=== PATIENT | female | born 1985 ===

== ENCOUNTER 2016-08-09 21:13 | Emergency (ER) | payer SELFPAY ==
[2016-08-09 22:00] VITALS: BP 109/68; PULSE 68; RESP 20; TEMP 98.2; O2SAT 98
[2016-08-09] MEDS ORDERED: Atrop/Hyos/Scop/PhenoB Elixir PO ONE (23:47)
[2016-08-09] MEDS ORDERED: Alum-Mag Hydrox-Simethicone Susp (30 mL) PO ONE (23:47)
[2016-08-10] MEDS ORDERED: Alum-Mag Hydrox-Simethicone Susp (30 mL) ONE (00:27)
--- NOTE | 2016-08-10 00:50 | ED PDOC ---
HPI: Abdomen Time Seen by Provider: 08/10/16 00:43 Chief Complaint (Nursing): Abdominal Pain Chief Complaint (Provider): epigastric pain History Per: Patient Additional Complaint(s): pt w/ hx gastritis c/o upper abd pain starting this afternoon after lunch. denies exertional sx, radiation to back or shoulders. c/o associated nausea. no vomitting, diarrhea, cp, sob, palp, urinary c/o. pt is being referred to GI for same but has not yet undergone endoscopy. pt is not currently on any medications for gastritis or GERD. Past Medical History Reviewed: Historical Data, Nursing Documentation, Vital Signs Vital Signs: Last Vital Signs Temp 98.2 F 08/09/16 21:57 Pulse 68 08/09/16 21:57 Resp 20 08/09/16 21:57 BP 109/68 08/09/16 21:57 Pulse Ox 98 08/09/16 21:57 - Medical History PMH: Gastritis - Surgical History Surgical History: (x2) - Family History Family History: States: No Known Family Hx - Social History Current smoker - smoking cessation education provided: No Alcohol: None - Home Medications Home Medications: Ambulatory Orders Medication Instructions Recorded Famotidine [Pepcid] 20 mg PO BID #20 tab 05/21/15 Famotidine [Pepcid] 40 mg PO DAILY #30 tab 11/13/15 Omeprazole Magnesium [Prilosec Otc] 20 mg PO DAILY #20 tablet. 08/10/16 - Allergies Allergies/Adverse Reactions: Allergies Allergy/AdvReac Type Severity Reaction Status Date / Time No Known Allergies Allergy Verified 05/21/15 17:15 Review of Systems ROS Statement: Except As Marked, All Systems Reviewed And Found Negative Gastrointestinal: Positive for: Nausea, Abdominal Pain Physical Exam - Reviewed Nursing Documentation Reviewed: Yes Vital Signs Reviewed: Yes - Physical Exam Appears: Positive for: Non-toxic, Uncomfortable Skin: Positive for: Normal Color, Warm, DRY Neck: Positive for: Normal, Painless ROM Cardiovascular/Chest: Positive for: Regular Rate, Rhythm Respiratory: Positive for: CNT, Normal Breath Sounds Gastrointestinal/Abdominal: Positive for: Normal Exam, Bowel Sounds, Soft, Other (neg muniz). Negative for: Tenderness Neurologic/Psych: Positive for: Alert, Oriented - ECG O2 Sat by Pulse Oximetry: 98 Medical Decision Making Medical Decision Making: sx relieved with GI cocktail. asking for d/c. will refer to clinic and GI for further care. Disposition - Clinical Impression Clinical Impression: Gastritis - Patient ED Disposition Is Patient to be Admitted: No - Disposition Referrals: [facility] [Outside] Shane Brown MD [Staff Provider] - Disposition: Routine/Home Disposition Time: 00:54 Condition: GOOD Prescriptions: Omeprazole Magnesium [Prilosec Otc] 20 mg PO DAILY #20 tablet. Instructions: Gastritis (ED) Print Language: SOUTH SUDANESE
== END 2016-08-10 01:14 | disposition home or self-care (01) ==
LOC: H.ER 21:13
DX: K29.70 Gastritis, unspecified, without bleeding (principal); R11.0 Nausea

== ENCOUNTER 2016-09-15 21:23 | Inpatient (IN) | payer SELFPAY ==
[2016-09-15] MEDS ORDERED: Sodium Chloride 0.9% 1,000 ML IV STA (22:02)
[2016-09-15 22:49] LABS: BASO % 0.3 % (0.0-2.0); EOS # 0.3 K/uL (0.0-0.7); HEMATOCRIT 33.6 % (34.0-47.0); LYMPH # 3.3 K/uL (1.0-4.3); LYMPH % 23.2 % (20.0-40.0); MEAN CORPUSCULAR HEMOGLOBIN 27.2 pg (27.0-31.0); MEAN CORPUSCULAR HGB CONC 32.4 g/dL (33.0-37.0); MEAN PLATELET VOLUME 9.2 fl (7.2-11.7); MONO # 0.6 K/uL (0.0-0.8); MONO % 4.6 % (0.0-10.0); NEUT # 9.8 K/uL (1.8-7.0); NEUT % 69.9 % (50.0-75.0); WHITE BLOOD COUNT 14.1 K/uL (4.8-10.8)
[2016-09-15 23:02] LABS: RBC URINE 2 /hpf (0-3); URINE BACTERIA RARE (<OCC); URINE BILIRUBIN NEGATIVE (NEGATIVE); URINE BLOOD NEGATIVE (NEGATIVE); URINE COLOR YELLOW (YELLOW); URINE GLUCOSE (UA) NEG (Normal); URINE KETONE NEGATIVE (NEGATIVE); URINE LEUKOCYTE ESTERASE NEG Leu/uL (Negative); URINE PROTEIN 30 mg/dL (NEGATIVE); URINE UROBILINOGEN 0.2-1.0 mg/dL (0.2-1.0); WBC URINE < 1 /hpf (0-5)
--- NOTE | 2016-09-15 23:10 | US ---
EXAM: US Abdomen Complete CLINICAL HISTORY: 31 years old, female; Pain; Abdominal pain; Epigastric; Additional info: Evaluate for cholecystitis TECHNIQUE: Real-time ultrasound of the abdomen (complete) with image documentation. COMPARISON: UN - ABDOMEN COMPLETE 09/13/2016 9:38:02 AM FINDINGS: Liver: Fatty infiltration. No mass. No intrahepatic ductal dilatation. Gallbladder: Contracted. Gallstones. 0.33 cm wall thickness. No pericholecystic fluid. No sonographic Anaya's sign. Common bile duct: No dilatation. No stones. Pancreas: Unremarkable as visualized. Kidneys: Normal echogenicity. No hydronephrosis. Spleen: No splenomegaly. Aorta: Unremarkable. No aneurysm. Inferior vena cava: Unremarkable. Free fluid: No significant free fluid. IMPRESSION: 1. Cholelithiasis with borderline gallbladder wall thickening. Clinical correlation is needed. 2. Incidental/non-acute findings are described above.
[2016-09-15 23:15] LABS: ALB/GLOB RATIO 1.2 (1.0-2.1); ALKALINE PHOSPHATASE 103 U/L (38-126); ALT/SGPT 58 U/L (9-52); AST/SGOT 116 U/L (14-36); BILIRUBIN,TOTAL 0.4 mg/dl (0.2-1.3); BLOOD UREA NITROGEN 12 mg/dl (7-17); CALCIUM 8.9 mg/dL (8.4-10.2); CARBON DIOXIDE 25 mmol/L (22-30); CHLORIDE 105 mmol/L (98-107); GFR AFRICAN-AMERICAN > 60; GLUCOSE,RANDOM 92 mg/dL (65-105); LIPASE 95 U/L (23-300); POTASSIUM 3.4 MMOL/L (3.6-5.0); SODIUM 140 mmol/l (132-148); TOTAL PROTEIN 7.4 G/DL (6.3-8.2)
--- NOTE | 2016-09-15 23:52 | ED PDOC ---
HPI: Abdomen Time Seen by Provider: 09/15/16 23:50 Chief Complaint (Nursing): Abdominal Pain Chief Complaint (Provider): abdominal pain History Per: Patient (31 y/o female here with epigastric pain on and off x many months worsening recently x few days. Was seen in clinic on Saturday and had US at that time. Has been on several medications for gastritis (unsure which) without relief. Deniesa ny fevesr/chills. No h/o surgery.) Past Medical History Reviewed: Historical Data, Nursing Documentation, Vital Signs Vital Signs: Last Vital Signs Temp 98 F 09/18/16 08:33 Pulse 61 09/18/16 08:33 Resp 20 09/18/16 08:33 BP 106/67 09/18/16 08:33 Pulse Ox 100 09/18/16 18:37 - Medical History PMH: Gastritis - Surgical History Surgical History: (x2) - Family History Family History: States: No Known Family Hx - Home Medications Home Medications: Ambulatory Orders Medication Instructions Recorded Omeprazole Magnesium [Prilosec Otc] 20 mg PO DAILY #20 tablet. 08/10/16 - Allergies Allergies/Adverse Reactions: Allergies Allergy/AdvReac Type Severity Reaction Status Date / Time No Known Allergies Allergy Verified 09/15/16 21:41 Review of Systems ROS Statement: Except As Marked, All Systems Reviewed And Found Negative Gastrointestinal: Positive for: Abdominal Pain Physical Exam - Reviewed Nursing Documentation Reviewed: Yes Vital Signs Reviewed: Yes - Physical Exam Appears: Positive for: Well, Non-toxic, No Acute Distress Head Exam: Positive for: ATRAUMATIC, NORMAL INSPECTION, NORMOCEPHALIC Skin: Positive for: Normal Color, Warm, DRY Eye Exam: Positive for: EOMI, Normal appearance, PERRL ENT: Positive for: Normal ENT Inspection Neck: Positive for: Normal, Painless ROM Cardiovascular/Chest: Positive for: Regular Rate, Rhythm Respiratory: Positive for: CNT, Normal Breath Sounds Gastrointestinal/Abdominal: Positive for: Normal Exam, Bowel Sounds, Soft, Tenderness (epigastric tenderness) Back: Positive for: Normal Inspection Extremity: Positive for: Normal ROM Neurologic/Psych: Positive for: Alert, Oriented - Laboratory Results Result Diagrams: 09/18/16 06:30 09/18/16 07:19 - ECG O2 Sat by Pulse Oximetry: 100 - Progress ED Course And Treament: Pepcid 20 mg iv x 1 dose Zofran 4 mg iv x 1 dose NS 1 liter wide open US abdomen:IMPRESSION: 1. Cholelithiasis with borderline gallbladder wall thickening. Clinical correlation is needed. 2. Incidental/non-acute findings are described above. Thank you for allowing us to participate in the care of your patient. d/w board certified family physician. d/w surgical services director honey producer for Dr. Birmingham Disposition - Clinical Impression Clinical Impression: Gallstones, Cholecystitis - Patient ED Disposition Is Patient to be Admitted: Yes - Disposition Disposition Time: 23:53 Condition: FAIR - Pt Status Changed To: Hospital Disposition Of: Inpatient - Admit Certification Admit to Inpatient:: After my assessment, the patient will require hospitalization for at least two midnights. This is because of the severity of symptoms shown, intensity of services needed, and/or the medical risk in this patient being treated as an outpatient.
[2016-09-15] MEDS ORDERED: Piperacillin/Tazobact 3.375 GM in Sodium Chloride 0.9% 100 ML IVPB STA (23:53)
--- NOTE | 2016-09-15 23:56 | CP.PCM.HP ---
History of Present Illness - History of Present Illness History of Present Illness: Patient seen and examined at the bedside with attending. 31F p/w with recurrent, constant, non-radiating RUQ/Epigastric pain that started about 30 minutes after dinner and worsened leading to nausea and vomiting x1. She denies any dizziness, SOB, chest pain, palpitations, diarrhea , urinary symptoms. PMH: h. pylori (04/2016 confirmed negative) PSH: C-sxn x2 Smoke/Alcohol/Drugs: Never/Denies/Denies LMP: 09/01/2016 OB: ALL: NKDA MARLEN: Denies ED COURSE VSS: 37.4- 61- 117/60- 16- 100% CBC: 14.1> 10.9/33.6 < 221 CMP: 140/3.4- 105/25- 12/0.7, Ca- 8.9, Gluc- 92, TBili- 0.4, ALP/AST/ALT- 103/ 116/58, TProt/Alb- 7.4/4.1 UA: WNL GB Ultrasound: Wall- 0.33mm, no pericholecystic fluid, CBD- 0.4, stone + Zosyn Zofran Pepcid 1/2L NS Present on Admission - Present on Admission Any Indicators Present on Admission: No Review of Systems - Gastrointestinal Gastrointestinal: Abdominal Pain, Nausea, Vomiting Past Patient History - Past Social History Smoking Status: Never Smoked - GASTROINTESTINAL Hx Gastritis: Yes - PSYCHIATRIC Hx Psychophysiologic Disorder: No Hx Substance Use: No - SURGICAL HISTORY Hx Section: Yes - ANESTHESIA Hx Anesthesia: Yes Hx Anesthesia Reactions: No Meds Allergies/Adverse Reactions: Allergies Allergy/AdvReac Type Severity Reaction Status Date / Time No Known Allergies Allergy Verified 09/15/16 21:41 Physical Exam - Constitutional Appears: Well, Non-toxic, No Acute Distress - Head Exam Head Exam: ATRAUMATIC, NORMAL INSPECTION - Eye Exam Eye Exam: EOMI, PERRL - ENT Exam ENT Exam: Mucous Membranes Moist, Normal Exam - Neck Exam Neck exam: Positive for: Full Rom, Normal Inspection. Negative for: Lymphadenopathy - Respiratory Exam Respiratory Exam: Clear to Auscultation Bilateral, NORMAL BREATHING PATTERN. absent: Rales, Wheezes - Cardiovascular Exam Cardiovascular Exam: REGULAR RHYTHM. absent: JVD - GI/Abdominal Exam GI & Abdominal Exam: Normal Bowel Sounds, Soft (Anaya's- negative, overall minimal pain noted primarily at epigastric on DEEP palpation). absent: Guarding , Rebound, Tenderness - Extremities Exam Extremities exam: Positive for: full ROM, normal capillary refill, pedal pulses present. Negative for: calf tenderness, pedal edema, tenderness - Back Exam Back exam: absent: CVA tenderness (L), CVA tenderness (R) - Neurological Exam Neurological exam: Alert, Oriented x3 - Psychiatric Exam Psychiatric exam: Normal Affect, Normal Mood - Skin Skin Exam: Normal Color, Warm Results - Vital Signs Recent Vital Signs: Last Vital Signs Temp 37.4 C 09/15/16 21:41 Pulse 61 09/15/16 21:41 Resp 16 09/15/16 21:41 BP 117/60 09/15/16 21:41 Pulse Ox 100 09/15/16 23:53 - Labs Result Diagrams: 09/15/16 22:44 09/15/16 22:44 Labs: Laboratory Results - last 24 hr 09/15/16 09/15/16 09/15/16 22:44 22:44 22:44 WBC 14.1 H D RBC 4.00 Hgb 10.9 L Hct 33.6 L MCV 84.0 MCH 27.2 MCHC 32.4 L RDW 15.0 H Plt Count 221 MPV 9.2 Neut % (Auto) 69.9 Lymph % (Auto) 23.2 [place] % (Auto) 4.6 Eos % (Auto) 2.0 Baso % (Auto) 0.3 Neut # 9.8 H Lymph # 3.3 [place] # 0.6 Eos # 0.3 Baso # 0.0 Sodium 140 Potassium 3.4 L Chloride 105 Carbon Dioxide 25 Anion Gap 13 BUN 12 Creatinine 0.7 Est GFR ( Amer) > 60 Est GFR (Non-Af Amer) > 60 Random Glucose 92 Calcium 8.9 Total Bilirubin 0.4 AST 116 H D ALT 58 H D Alkaline Phosphatase 103 Total Protein 7.4 Albumin 4.1 Globulin 3.3 Albumin/Globulin Ratio 1.2 Lipase 95 Urine Color Yellow Urine Clarity Slighty-cloudy Urine pH 6.0 Ur Specific [place] 1.024 Urine Protein 30 Urine Glucose (UA) Neg Urine Ketones Negative Urine Blood Negative Urine Nitrate Negative Urine Bilirubin Negative Urine Urobilinogen 0.2-1.0 Ur Leukocyte Esterase Neg Urine RBC (Auto) 2 Urine Microscopic WBC < 1 Ur Squamous Epith Cells < 1 Urine Bacteria Rare Assessment & Plan (1) Cholecystitis Assessment and Plan: Symptomatic biliary colic vs mild cholecystitis. - NPO/IVF - Zosyn 3.375mg, IV, Q6H - Gen Surg Consult Status: Acute (2) DVT prophylaxis Assessment and Plan: Lovenox 40mg, SC, Daily Status: Acute
[2016-09-16] MEDS ORDERED: HYDROmorphone 0.5 mg/0.5 ml ISec IVP PRN (00:40)
[2016-09-16] MEDS ORDERED: Sodium Chloride 0.9% 1,000 ML IV SCH ×2 (00:45→17:45)
[2016-09-16] MEDS: Potassium Ch 20mEq in D5-1/2NS 1,000 ML IV SCH ×4 (01:12→16:27)
[2016-09-16 02:13] LABS: PARTIAL THROMBOPLASTIN TIME 24.9 Seconds (25.6-37.1)
[2016-09-16] MEDS: Piperacillin/Tazobact 3.375 GM in Sodium Chloride 0.9% 100 ML IVPB SCH ×3 (05:42→17:35)
--- NOTE | 2016-09-16 07:11 | CP.PCM.CON ---
<Mario Delgado D - Last Filed: 09/16/16 12:32> History of Present Illness - History of Present Illness History of Present Illness: CONSULT NOTE FOR DR. BIRMINGHAM 31F presents to [facility] with epigastric abdominal pain that started yesterday. Patient states she thought it was associated with her gastritis. She states the pain is associated with nausea, vomiting. Last time she vomited was yesterday. She denies fevers, chill, or change in bowel movement. PMH: Gastritis PSH: C-sec*2 Social: denies tobacco/alcohol/illicit drugs Allergies: NKDA Past Patient History - Past Medical History & Family History Past Medical History?: Yes - Past Social History Smoking Status: Never Smoked - CARDIAC Hx Cardiac Disorders: No - PULMONARY Hx Respiratory Disorders: No - NEUROLOGICAL Hx Neurological Disorder: No - HEENT Hx HEENT Problems: No - RENAL Hx Chronic Kidney Disease: No - ENDOCRINE/METABOLIC Hx Endocrine Disorders: No - HEMATOLOGICAL/ONCOLOGICAL Hx Blood Disorders: No - INTEGUMENTARY Hx Dermatological Problems: No - MUSCULOSKELETAL/RHEUMATOLOGICAL Hx Musculoskeletal Disorders: No Hx Falls: No - GASTROINTESTINAL Hx Gastrointestinal Disorders: Yes Hx Gastritis: Yes - GENITOURINARY/GYNECOLOGICAL Hx Genitourinary Disorders: No - PSYCHIATRIC Hx Psychophysiologic Disorder: No Hx Substance Use: No - SURGICAL HISTORY Hx Section: Yes - ANESTHESIA Hx Anesthesia: Yes Hx Anesthesia Reactions: No Meds Allergies/Adverse Reactions: Allergies Allergy/AdvReac Type Severity Reaction Status Date / Time No Known Allergies Allergy Verified 09/15/16 21:41 - Medications Medications: Current Medications Hydromorphone HCl (Dilaudid) 0.5 mg IVP Q4 PRN PRN Reason: Pain, moderate (4-7) Piperacillin Sod/Tazobactam (Sod 3.375 gm/ Sodium Chloride) 100 mls @ 100 mls/ hr IVPB 0000,0600,1200,1800 [facility] Last Admin: 09/16/16 05:42 Dose: 100 mls/hr Potassium Chloride/Dextrose/Sod Cl (Potassium Chl 20 Meq In D5-1/2ns) 1,000 mls @ 130 mls/hr IV .Q7H42M [facility] Stop: 09/17/16 00:31 Last Admin: 09/16/16 01:12 Dose: 130 mls/hr Ondansetron HCl (Zofran Inj) 4 mg IVP Q4 PRN PRN Reason: Nausea/Vomiting Physical Exam - Constitutional Appears: Non-toxic, No Acute Distress - Head Exam Head Exam: ATRAUMATIC - Eye Exam Eye Exam: EOMI, PERRL - ENT Exam ENT Exam: Mucous Membranes Moist - Respiratory Exam Respiratory Exam: Clear to Auscultation Bilateral, NORMAL BREATHING PATTERN - Cardiovascular Exam Cardiovascular Exam: REGULAR RHYTHM, +S1, +S2 - GI/Abdominal Exam GI & Abdominal Exam: Soft. absent: Distended, Firm, Guarding, Rebound, Rigid, Tenderness (mid epigastric tenderness) Additional comments: negative muniz's sign - Extremities Exam Extremities exam: Negative for: pedal edema, tenderness - Neurological Exam Neurological exam: Alert, Oriented x3 - Psychiatric Exam Psychiatric exam: Normal Affect, Normal Mood - Skin Skin Exam: Dry, Intact, Normal Color, Warm Results - Vital Signs Recent Vital Signs: Last Vital Signs Temp 99.0 F 09/16/16 01:47 Pulse 86 09/16/16 01:47 Resp 19 09/16/16 02:29 BP 122/68 09/16/16 01:47 Pulse Ox 98 09/16/16 02:29 - Labs Result Diagrams: 09/16/16 07:00 09/16/16 07:00 Labs: Laboratory Results - last 24 hr 09/16/16 09/16/16 00:29 01:39 PT 14.8 H INR 1.3 H APTT 24.9 L Lactic Acid 0.9 Assessment & Plan - Assessment and Plan (Free Text) Assessment: 31F with epigastric pain likely Biliary colic Plan: - plane for OR tomorrow afternoon - Pre-op/ Consent needed - NPO after midnight Discussed with Dr. Valencia Delgado, PGY1 <Elbert Birmingham - Last Filed: 09/17/16 22:14> Meds - Medications Medications: Current Medications Hydromorphone HCl (Dilaudid) 0.5 mg IVP Q4 PRN PRN Reason: Pain, moderate (4-7) Piperacillin Sod/Tazobactam (Sod 3.375 gm/ Sodium Chloride) 100 mls @ 100 mls/ hr IVPB 0000,0600,1200,1800 [facility] Last Admin: 09/17/16 18:08 Dose: 100 mls/hr Lactated Ringer's (Lactated Ringer's) 1,000 mls @ 100 mls/hr IV .Q10H [facility] Last Admin: 09/17/16 18:07 Dose: Not Given Ondansetron HCl (Zofran Inj) 4 mg IVP Q4 PRN PRN Reason: Nausea/Vomiting Oxycodone/Acetaminophen (Percocet 5/325 Mg Tab) 2 tab PO Q4 PRN PRN Reason: Pain, moderate (4-7) Stop: 09/20/16 15:10 Results - Vital Signs Recent Vital Signs: Last Vital Signs Temp 98.6 F 09/17/16 16:55 Pulse 55 L 09/17/16 16:55 Resp 20 09/17/16 16:55 BP 120/77 09/17/16 16:55 Pulse Ox 100 09/17/16 16:55 - Labs Result Diagrams: 09/17/16 04:40 09/17/16 04:40 Labs: Laboratory Results - last 24 hr 09/16/16 09/17/16 09/17/16 10:30 04:40 04:40 WBC 6.5 RBC 3.83 Hgb 10.7 L Hct 32.1 L MCV 83.8 MCH 27.9 MCHC 33.3 RDW 15.1 H Plt Count 196 PT 14.0 H INR 1.2 APTT 31.3 D Sodium Potassium Chloride Carbon Dioxide Anion Gap BUN Creatinine Est GFR ( Amer) Est GFR (Non-Af Amer) Random Glucose Calcium Total Bilirubin AST ALT Alkaline Phosphatase Total Protein Albumin Globulin Albumin/Globulin Ratio Hepatitis A IgM Ab Negative Hep Bs Antigen Negative Hep B Core IgM Ab Negative Hepatitis C Antibody Negative 09/17/16 04:40 WBC RBC Hgb Hct MCV MCH MCHC RDW Plt Count PT INR APTT Sodium 142 Potassium 4.0 Chloride 111 H Carbon Dioxide 24 Anion Gap 11 BUN 5 L Creatinine 0.7 Est GFR ( Amer) > 60 Est GFR (Non-Af Amer) > 60 Random Glucose 87 Calcium 8.4 Total Bilirubin 1.0 AST 449 H D ALT 618 H D Alkaline Phosphatase 110 Total Protein 6.6 Albumin 3.5 Globulin 3.1 Albumin/Globulin Ratio 1.1 Hepatitis A IgM Ab Hep Bs Antigen Hep B Core IgM Ab Hepatitis C Antibody Attending/Attestation - Attestation I have personally seen and examined this patient.: Yes I have fully participated in the care of the patient.: Yes I have reviewed all pertinent clinical information: Yes Notes (Text): 09/17/16 22:13 Pt was seen and examined at bedside on 09/16/16 Agree with above note and assessment Pt with Cholelithiasis and Possible Cholecystitis OR for Lap Cholecystectomy tomorrow NPO, IVF C/w IV antibiotics Plan d.w pt in detail Risk and benefit explained in detail.
[2016-09-16 08:11] LABS: BASO % 0.3 % (0.0-2.0); EOS # 0.1 K/uL (0.0-0.7); EOS % 1.3 % (0.0-4.0); HEMATOCRIT 32.6 % (34.0-47.0); LYMPH # 1.7 K/uL (1.0-4.3); LYMPH % 33.4 % (20.0-40.0); MEAN CELL VOLUME 83.8 fl (81.0-99.0); MEAN CORPUSCULAR HEMOGLOBIN 27.8 pg (27.0-31.0); MEAN CORPUSCULAR HGB CONC 33.1 g/dL (33.0-37.0); MEAN PLATELET VOLUME 9.4 fl (7.2-11.7); MONO # 0.5 K/uL (0.0-0.8); NEUT # 2.9 K/uL (1.8-7.0); NRBC % 0.1 % (0.0-0.0); RED CELL DISTRIBUTION WIDTH 14.9 % (11.5-14.5); WHITE BLOOD COUNT 5.1 K/uL (4.8-10.8)
[2016-09-16 08:14] LABS: ALB/GLOB RATIO 1.2 (1.0-2.1); ALKALINE PHOSPHATASE 140 U/L (38-126); BILIRUBIN,TOTAL 0.9 mg/dl (0.2-1.3); BLOOD UREA NITROGEN 7 mg/dl (7-17); CALCIUM 8.7 mg/dL (8.4-10.2); CARBON DIOXIDE 25 mmol/L (22-30); CHLORIDE 109 mmol/L (98-107); GFR AFRICAN-AMERICAN > 60; GLUCOSE,RANDOM 93 mg/dL (65-105); POTASSIUM 3.9 MMOL/L (3.6-5.0); SODIUM 142 mmol/l (132-148); TOTAL PROTEIN 6.7 G/DL (6.3-8.2)
--- NOTE | 2016-09-16 08:50 | CP.PCM.PN ---
Subjective - Date & Time of Evaluation Date of Evaluation: 09/16/16 Time of Evaluation: 08:30 - Subjective Subjective: No acute events overnight. Patient denies any pain, nausea, vomiting diarrhea or fevers/chills. Feels better since admission. LFTs are trending up. Leukocytosis resolved. D/w surgical team. Patient is for OR tomorrow for laparscopic cholecystectomy. Liquid diet today, NPO after midnight. Objective - Vital Signs/Intake and Output Vital Signs (last 24 hours): Temp Pulse Resp BP Pulse Ox 98.2 F 52 L 18 95/60 L 99 09/16/16 07:51 09/16/16 07:51 09/16/16 07:51 09/16/16 07:51 09/16/16 07:51 - Medications Medications: Current Medications Hydromorphone HCl (Dilaudid) 0.5 mg IVP Q4 PRN PRN Reason: Pain, moderate (4-7) Piperacillin Sod/Tazobactam (Sod 3.375 gm/ Sodium Chloride) 100 mls @ 100 mls/ hr IVPB 0000,0600,1200,1800 [facility] Last Admin: 09/16/16 05:42 Dose: 100 mls/hr Potassium Chloride/Dextrose/Sod Cl (Potassium Chl 20 Meq In D5-1/2ns) 1,000 mls @ 130 mls/hr IV .Q7H42M [facility] Stop: 09/17/16 00:31 Last Admin: 09/16/16 08:36 Dose: Not Given Ondansetron HCl (Zofran Inj) 4 mg IVP Q4 PRN PRN Reason: Nausea/Vomiting - Labs Labs: 09/16/16 07:00 PT 14.8 Seconds (9.8-13.1) H 09/16/16 01:39 INR 1.3 (0.9-1.2) H 09/16/16 01:39 APTT 24.9 Seconds (25.6-37.1) L 09/16/16 01:39 - Constitutional Appears: Non-toxic, Older Than Stated Age - Eye Exam Eye Exam: EOMI - Respiratory Exam Respiratory Exam: NORMAL BREATHING PATTERN - Cardiovascular Exam Cardiovascular Exam: REGULAR RHYTHM, +S1, +S2 - GI/Abdominal Exam GI & Abdominal Exam: Soft. absent: Distended, Guarding, Tenderness, Rebound - Rectal Exam Rectal Exam: Deferred - Extremities Exam Extremities Exam: absent: Pedal Edema, Tenderness - Back Exam Back Exam: NORMAL INSPECTION - Neurological Exam Neurological Exam: Alert, Awake, CN II-XII Intact - Psychiatric Exam Psychiatric exam: Normal Affect, Normal Mood - Skin Skin Exam: Dry, Intact Assessment and Plan - Assessment and Plan (Free Text) Assessment: 31 year old female admitted for cholecystitis. Patient is for OR in 09/17. liquid diet today, NPO after midnight. . Cholecystitis Assessment and Plan: -pt for or 09/17 - LFTs trending up :AST:1415, ALT:789, Alk phos: 140. lipase WNL - liquids - IVF - Zosyn 3.375mg, IV, Q6H - Surgery is following (Dr. Anaya) Status: Acute . DVT prophylaxis Assessment and Plan: Lovenox 40mg, SC, Daily. hold pt is for OR in AM. scds Status: Acute .Morbid obesity Assessment and Plan: -regular -HgA1c: 5.5 -Lipids WNL Status: chronic
[2016-09-16] MEDS ORDERED: Enoxaparin 40 mg Syringe SC SCH (09:00)
[2016-09-16 10:03] LABS: ALT/SGPT 789 U/L (9-52)
[2016-09-16 10:17] LABS: AST/SGOT 1415 U/L (14-36)
--- NOTE | 2016-09-16 18:05 | CP.PCM.PN ---
Subjective - Date & Time of Evaluation Date of Evaluation: 09/16/16 Time of Evaluation: 16:00 - Subjective Subjective: Patient evaluated following an episode of sinus bradycardia. She denies any lightheadedness, dizziness, fevers/chills, nausea, vomiting, diarrhea, chest pain, palpitations, SOB, dyspnea, or abdominal pain. She also denies any PMHx, including that of cardiac or thyroid origin. Upon repositioning, patient's vitals were retaken and discovered to be HR 62 & BP 112/64. The rest of the physical examination was wnl and in-line with the previous exams. Labs and EKG ordered to further evaluate. AAOx3 Normocephalic, Atraumatic PERRL, EOMI Neck Supple, No Thyromegaly appreciated RRR, S1 S2 CTA b/l Abdomen Nontender, Nondistended, No Guarding No Pedal Edema or Tenderness f/u FT3, FT4, TSH f/u Trop, EKG f/u Vitals
[2016-09-17] MEDS: Potassium Ch 20mEq in D5-1/2NS 1,000 ML IV SCH ×4 (00:13→09:17)
[2016-09-17] MEDS: Piperacillin/Tazobact 3.375 GM in Sodium Chloride 0.9% 100 ML IVPB SCH ×5 (00:15→23:16)
[2016-09-17 06:14] LABS: HEMATOCRIT 32.1 % (34.0-47.0); MEAN CELL VOLUME 83.8 fl (81.0-99.0); MEAN CORPUSCULAR HEMOGLOBIN 27.9 pg (27.0-31.0); MEAN CORPUSCULAR HGB CONC 33.3 g/dL (33.0-37.0); RED CELL DISTRIBUTION WIDTH 15.1 % (11.5-14.5); WHITE BLOOD COUNT 6.5 K/uL (4.8-10.8)
[2016-09-17 06:31] LABS: ALB/GLOB RATIO 1.1 (1.0-2.1); ALKALINE PHOSPHATASE 110 U/L (38-126); ALT/SGPT 618 U/L (9-52); AST/SGOT 449 U/L (14-36); BLOOD UREA NITROGEN 5 mg/dl (7-17); CALCIUM 8.4 mg/dL (8.4-10.2); CARBON DIOXIDE 24 mmol/L (22-30); CHLORIDE 111 mmol/L (98-107); GFR AFRICAN-AMERICAN > 60; GLUCOSE,RANDOM 87 mg/dL (65-105); SODIUM 142 mmol/l (132-148); TOTAL PROTEIN 6.6 G/DL (6.3-8.2)
[2016-09-17 06:33] LABS: PARTIAL THROMBOPLASTIN TIME 31.3 Seconds (25.6-37.1)
--- NOTE | 2016-09-17 07:31 | CP.PCM.PN ---
Subjective - Date & Time of Evaluation Date of Evaluation: 09/17/16 Time of Evaluation: 10:00 - Subjective Subjective: No acute events overnight. Patient seen and examined this AM. NPO status maintained for laparascopic cholecystectomy. Pt denies any pain, nausea, vomiting, diarrhea. She is ready for OR. Will reevaluate post operatively. Objective - Vital Signs/Intake and Output Vital Signs (last 24 hours): Temp Pulse Resp BP Pulse Ox 97.9 F 42 L 18 93/54 L 99 09/17/16 00:34 09/17/16 00:34 09/17/16 00:34 09/17/16 00:34 09/17/16 00:34 - Medications Medications: Current Medications Hydromorphone HCl (Dilaudid) 0.5 mg IVP Q4 PRN PRN Reason: Pain, moderate (4-7) Piperacillin Sod/Tazobactam (Sod 3.375 gm/ Sodium Chloride) 100 mls @ 100 mls/ hr IVPB 0000,0600,1200,1800 [facility] Last Admin: 09/17/16 05:49 Dose: 100 mls/hr Potassium Chloride/Dextrose/Sod Cl (Potassium Chl 20 Meq In D5-1/2ns) 1,000 mls @ 130 mls/hr IV .Q7H42M [facility] Stop: 09/17/16 16:38 Last Admin: 09/17/16 02:18 Dose: Not Given Ondansetron HCl (Zofran Inj) 4 mg IVP Q4 PRN PRN Reason: Nausea/Vomiting - Labs Labs: 09/17/16 04:40 09/17/16 04:40 PT 14.0 Seconds (9.8-13.1) H 09/17/16 04:40 INR 1.2 (0.9-1.2) 09/17/16 04:40 APTT 31.3 Seconds (25.6-37.1) D 09/17/16 04:40 - Constitutional Appears: Non-toxic, No Acute Distress - Respiratory Exam Respiratory Exam: NORMAL BREATHING PATTERN - Cardiovascular Exam Cardiovascular Exam: REGULAR RHYTHM - GI/Abdominal Exam GI & Abdominal Exam: Soft, Hypoactive Bowel Sounds. absent: Distended, Tenderness - Extremities Exam Extremities Exam: absent: Calf Tenderness, Pedal Edema - Neurological Exam Neurological Exam: Alert, Awake, Oriented x3 - Psychiatric Exam Psychiatric exam: Anxious - Skin Skin Exam: Dry, Intact Assessment and Plan - Assessment and Plan (Free Text) Assessment: 31 year old female admitted for cholecystitis, for laparscopic cholecystectomy today. . Cholecystitis Assessment and Plan: -lap daria today. - LFTs trending up :AST:449, ALT:618, Alk phos: wnl. - IVF - Zosyn 3.375mg, IV, Q6H - Surgery is following (Dr. Anaya) Status: Acute . DVT prophylaxis Assessment and Plan: Lovenox 40mg, SC, Daily. scds Status: Acute .Morbid obesity Assessment and Plan: -regular -HgA1c: 5.5 -Lipids WNL Status: chronic
[2016-09-17] MEDS ORDERED: Lactated Ringer's 1,000 ML IV ONE ×3 (13:13→14:53)
[2016-09-17] MEDS ORDERED: Bupivacaine 0.5% 50 ML IJ ONE ×2 (13:35)
[2016-09-17] MEDS ORDERED: Lidocaine 1% Inj (20ml) IJ ONE ×2 (13:35)
[2016-09-17] MEDS ORDERED: Lactated Ringer's 500 ML IV ONE (14:00)
[2016-09-17 14:45] LABS: FT3 3.48 pg/mL (2.77-5.27)
[2016-09-17] MEDS: HYDROmorphone 0.5 mg/0.5 ml ISec IVP PRN ×2 (15:10→15:20)
[2016-09-17] MEDS ORDERED: Lactated Ringer's 1,000 ML IV SCH (15:11)
--- NOTE | 2016-09-17 15:11 | PCM.SURG1 ---
Surgeon's Initial Post Op Note - Surgeon's Notes Surgeon: Dr. Birmingham Dietary Tech: Dr. Krishnamurthy PGy2; Dr. Thacker PGY1 Type of Anesthesia: General Endo Anesthesia Administered By: Vel Pre-Operative Diagnosis: Acute Cholecystitis Operative Findings: same Post-Operative Diagnosis: same Operation Performed: Laparoscopic Cholecystectomy Specimen/Specimens Removed: gallbladder Estimated Blood Loss: EBL {In ML}: 10 Blood Products Given: N/A Drains Used: No Drains Post-Op Condition: Good Date of Surgery/Procedure: 09/17/16 Time of Surgery/Procedure: 15:10
--- NOTE | 2016-09-17 17:33 | OP ---
PROCEDURE DATE: 09/17/2016 PREOPERATIVE DIAGNOSIS: Acute cholecystitis. POSTOPERATIVE DIAGNOSES: Acute cholecystitis and cholelithiasis. PROCEDURE DONE: Laparoscopic cholecystectomy. SURGEON: Elbert Birmingham M.D. TEACHER ADVISOR: Geri Ariat, PGY-2 resident. ANESTHESIA: General endotracheal tube anesthesia. ESTIMATED BLOOD LOSS: Around 10 mL. DRAINS: None. PATHOLOGY: Gallbladder was sent for pathology. COMPLICATIONS: None. INTRAOPERATIVE FINDINGS: The patient had changes of acute cholecystitis and cholelithiasis. INTRAOPERATIVE STEPS: This 31-year-old female who was diagnosed with acute cholecystitis and cholelithiasis and patient was consented for laparoscopic cholecystectomy, possible open. Brought to the OR, placed supine on the operating table. After induction of the anesthesia, abdomen was prepped and draped in the usual sterile fashion. Supraumbilical transverse 1.5 cm incision was made. After incising skin and subcutaneous tissue, the fascia was incised in the line of incision. Pinky port was placed, pneumo was created. Another 12 mm port was placed in the midline below costal margin. Another two 5 mm ports were placed in midclavicular and anterior axillary line. After the grasper and dissector was introduced and Calot's triangle dissection was done. Cystic duct and cystic artery was identified. The critical view of safety was also identified and cystic duct and cystic artery was clipped at 3 places and cut in between 2 clips nearby gallbladder and gallbladder was dissected free from the gallbladder fossa, taken in EndoCatch bag, taken out through the umbilical port site and sent to the table for the pathology. There was a proper hemostasis in each and every part of the procedure and the gallbladder was taken in EndoCatch bag and taken out through the umbilical port site and sent to the table for the pathology. All the instruments, all the ports were taken out under vision. Pneumo was deflated. Umbilical port site was closed in 2 layers, the fascia with 0 Vicryl interrupted suture, skin with a 4-0 Monocryl and dry sterile dressing was applied. The patient tolerated the procedure well. Count of instruments and gauze was correct. There was no apparent complication. Elbert Birmingham MD cc: [id number] TT: 09/17/2016 17:33:10 jn MTDD
--- NOTE | 2016-09-17 18:01 | CP.PCM.PN ---
Subjective - Date & Time of Evaluation Date of Evaluation: 09/17/16 Time of Evaluation: 18:37 - Subjective Subjective: Pt. lying in bed awake talking to family members. Pt. is s/p Lap Cholecystecomy. Pt. states she feels nauseous but has not thrown up. Pt. also reports currently abdominal pain is well controlled and does not need any medication for pain at this time. Pt. also reports is moving gas but not had a bowel movement yet. Pt. also reports having voided after surgery. On ROS, pt. denies any headache, chest pain, shortness of breath, cough, fever, chills, back pain, neck pain, or limb pain. Objective - Vital Signs/Intake and Output Vital Signs (last 24 hours): Temp Pulse Resp BP Pulse Ox 98.6 F 55 L 20 120/77 100 09/17/16 16:55 09/17/16 16:55 09/17/16 16:55 09/17/16 16:55 09/17/16 16:55 Intake and Output: 09/17/16 09/17/16 06:59 18:59 Intake Total 1650 Balance 1650 - Medications Medications: Current Medications Hydromorphone HCl (Dilaudid) 0.5 mg IVP Q4 PRN PRN Reason: Pain, moderate (4-7) Piperacillin Sod/Tazobactam (Sod 3.375 gm/ Sodium Chloride) 100 mls @ 100 mls/ hr IVPB 0000,0600,1200,1800 [facility] Last Admin: 09/17/16 05:49 Dose: 100 mls/hr Lactated Ringer's (Lactated Ringer's) 1,000 mls @ 100 mls/hr IV .Q10H [facility] Ondansetron HCl (Zofran Inj) 4 mg IVP Q4 PRN PRN Reason: Nausea/Vomiting Oxycodone/Acetaminophen (Percocet 5/325 Mg Tab) 2 tab PO Q4 PRN PRN Reason: Pain, moderate (4-7) Stop: 09/20/16 15:10 - Labs Labs: 09/17/16 04:40 09/17/16 04:40 PT 14.0 Seconds (9.8-13.1) H 09/17/16 04:40 INR 1.2 (0.9-1.2) 09/17/16 04:40 APTT 31.3 Seconds (25.6-37.1) D 09/17/16 04:40 - Constitutional Appears: Non-toxic, No Acute Distress - Eye Exam Eye Exam: Normal appearance. absent: Scleral icterus - Neck Exam Neck Exam: Full ROM - Respiratory Exam Respiratory Exam: Clear to Ausculation Bilateral, NORMAL BREATHING PATTERN - Cardiovascular Exam Cardiovascular Exam: REGULAR RHYTHM, +S1, +S2 - GI/Abdominal Exam Additional comments: +Non-distended, Soft, +mildly tender to palpation, +3 post-laparoscopy incision noted and are clean, dry, and intact, +active bowel sounds - Extremities Exam Extremities Exam: Normal Capillary Refill. absent: Calf Tenderness Additional comments: +dorsalis pedis pulses +2 bilaterally - Neurological Exam Neurological Exam: Alert, Awake, Oriented x3 Assessment and Plan - Assessment and Plan (Free Text) Assessment: 31 y.o. female s/p Lap-Mery POD#0 tolerated procedure well Cholecystitis 1- Advance diet as tolerated - discontinue fluids when tolerating PO 2- Pain Management- Dilaudid & Percocet PRN 3- Consider discontinue I.V. antibiotics- BCX negative to date 4- Incentive spirometery 5- Encourage early ambulation & SCD for now 6- Surgery input appreciated.
--- NOTE | 2016-09-17 19:23 | CARD ---
APPROVED REPORT EKG Measurement Heart [id number] [id number] <Conclusion> Marked sinus bradycardia Abnormal ECG
[2016-09-17] MEDS ORDERED: Simethicone 80 mg Chewtab PO PRN (22:55)
[2016-09-17] MEDS: Oxycodone/Acetaminophen 5/325 mg Tab PO PRN (23:43)
[2016-09-18] MEDS: Piperacillin/Tazobact 3.375 GM in Sodium Chloride 0.9% 100 ML IVPB SCH (05:13)
[2016-09-18 07:30] LABS: HEMATOCRIT 31.2 % (34.0-47.0); MEAN CORPUSCULAR HEMOGLOBIN 27.9 pg (27.0-31.0); MEAN CORPUSCULAR HGB CONC 33.2 g/dL (33.0-37.0); WHITE BLOOD COUNT 8.8 K/uL (4.8-10.8)
[2016-09-18 07:55] LABS: ALB/GLOB RATIO 1.2 (1.0-2.1); ALKALINE PHOSPHATASE 98 U/L (38-126); ALT/SGPT 447 U/L (9-52); AST/SGOT 170 U/L (14-36); BILIRUBIN,TOTAL 0.9 mg/dl (0.2-1.3); BLOOD UREA NITROGEN 5 mg/dl (7-17); CALCIUM 8.8 mg/dL (8.4-10.2); CARBON DIOXIDE 23 mmol/L (22-30); CHLORIDE 105 mmol/L (98-107); GFR AFRICAN-AMERICAN > 60; GLUCOSE,RANDOM 86 mg/dL (65-105); POTASSIUM 3.7 MMOL/L (3.6-5.0); SODIUM 138 mmol/l (132-148); TOTAL PROTEIN 6.8 G/DL (6.3-8.2)
[2016-09-18 08:33] VITALS: BP 106/67; PULSE 61; RESP 20; TEMP 98
--- NOTE | 2016-09-18 10:01 | CP.PCM.PN ---
Subjective - Date & Time of Evaluation Date of Evaluation: 09/18/16 Time of Evaluation: 07:00 - Subjective Subjective: General Surgery progress note Patient s/e at bedside this AM. NAEO. Patient tolerated diet last night, pain is improved. Objective - Vital Signs/Intake and Output Vital Signs (last 24 hours): Temp Pulse Resp BP Pulse Ox 98 F 61 20 106/67 99 09/18/16 08:33 09/18/16 08:33 09/18/16 08:33 09/18/16 08:33 09/18/16 08:33 - Medications Medications: Current Medications Hydromorphone HCl (Dilaudid) 0.5 mg IVP Q4 PRN PRN Reason: Pain, moderate (4-7) Piperacillin Sod/Tazobactam (Sod 3.375 gm/ Sodium Chloride) 100 mls @ 100 mls/ hr IVPB 0000,0600,1200,1800 [facility] Last Admin: 09/18/16 05:13 Dose: 100 mls/hr Lactated Ringer's (Lactated Ringer's) 1,000 mls @ 100 mls/hr IV .Q10H [facility] Last Admin: 09/17/16 18:07 Dose: Not Given Ondansetron HCl (Zofran Inj) 4 mg IVP Q4 PRN PRN Reason: Nausea/Vomiting Oxycodone/Acetaminophen (Percocet 5/325 Mg Tab) 2 tab PO Q4 PRN PRN Reason: Pain, moderate (4-7) Stop: 09/20/16 15:10 Last Admin: 09/17/16 23:43 Dose: 2 tab Simethicone (Mylicon Chew Tab) 80 mg PO TID PRN PRN Reason: Flatulence Last Admin: 09/17/16 23:16 Dose: 80 mg - Labs Labs: 09/18/16 06:30 09/18/16 07:19 PT 14.0 Seconds (9.8-13.1) H 09/17/16 04:40 INR 1.2 (0.9-1.2) 09/17/16 04:40 APTT 31.3 Seconds (25.6-37.1) D 09/17/16 04:40 - Constitutional Appears: Well, Non-toxic, No Acute Distress - Head Exam Head Exam: ATRAUMATIC, NORMOCEPHALIC - Eye Exam Eye Exam: Normal appearance. absent: Conjunctival injection, Scleral icterus - ENT Exam ENT Exam: Mucous Membranes Moist, Normal Oropharynx - Respiratory Exam Respiratory Exam: NORMAL BREATHING PATTERN. absent: Accessory Muscle Use, Respiratory Distress - GI/Abdominal Exam GI & Abdominal Exam: Soft, Tenderness (Appropriate mild tenderness in RUQ). absent: Distended Additional comments: Dressing C/D/I - Extremities Exam Extremities Exam: absent: Calf Tenderness, Pedal Edema, Tenderness - Neurological Exam Neurological Exam: Alert, Awake, Oriented x3 - Psychiatric Exam Psychiatric exam: Normal Affect, Normal Mood - Skin Skin Exam: Dry, Intact, Normal Color, Warm Assessment and Plan - Assessment and Plan (Free Text) Assessment: 31F POD#1 s/p Lap cholecystectomy Patient stable, recovering well, tolerating diet LFT's trending down Plan: -Patient is cleared for discharge from a surgical standpoint with follow up with Dr. Birmingham in two weeks -Leave bandaids on for 2 days then remove. Steri strips stay until the fall off. Patient may shower tomorrow but not soak incisions -Avoid lifting more than 10 pounds for 4 weeks -Percocet for pain management Discussed with Dr. Valencia Thacker, Pgy1
--- NOTE | 2016-09-18 12:04 | CP.PCM.DIS ---
Provider - Provider Date of Admission: 09/15/16 23:54 Attending physician: Jackelyn Jones MD Consults: Surgery Time Spent in preparation of Discharge (in minutes): 30 Diagnosis - Discharge Diagnosis (1) Cholecystitis Status: Acute Hospital Course - Lab Results Lab Results: Micro Results 09/16/16 00:25 Blood-Venous Blood Culture - Preliminary NO GROWTH AFTER 48 HOURS 09/16/16 00:10 Blood-Venous Blood Culture - Preliminary NO GROWTH AFTER 48 HOURS Most Recent Lab Values WBC 8.8 K/uL (4.8-10.8) 09/18/16 06:30 RBC 3.72 Mil/uL (3.80-5.20) L 09/18/16 06:30 Hgb 10.4 g/dL (12.0-16.0) L 09/18/16 06:30 Hct 31.2 % (34.0-47.0) L 09/18/16 06:30 MCV 84.0 fl (81.0-99.0) 09/18/16 06:30 MCH 27.9 pg (27.0-31.0) 09/18/16 06:30 MCHC 33.2 g/dL (33.0-37.0) 09/18/16 06:30 RDW 15.0 % (11.5-14.5) H 09/18/16 06:30 Plt Count 202 K/uL (130-400) 09/18/16 06:30 MPV 9.4 fl (7.2-11.7) 09/16/16 07:00 Neut % (Auto) 56.0 % (50.0-75.0) 09/16/16 07:00 Lymph % (Auto) 33.4 % (20.0-40.0) 09/16/16 07:00 [place] % (Auto) 9.0 % (0.0-10.0) 09/16/16 07:00 Eos % (Auto) 1.3 % (0.0-4.0) 09/16/16 07:00 Baso % (Auto) 0.3 % (0.0-2.0) 09/16/16 07:00 Neut # 2.9 K/uL (1.8-7.0) 09/16/16 07:00 Lymph # 1.7 K/uL (1.0-4.3) 09/16/16 07:00 [place] # 0.5 K/uL (0.0-0.8) 09/16/16 07:00 Eos # 0.1 K/uL (0.0-0.7) 09/16/16 07:00 Baso # 0.0 K/uL (0.0-0.2) 09/16/16 07:00 PT 14.0 Seconds (9.8-13.1) H 09/17/16 04:40 INR 1.2 (0.9-1.2) 09/17/16 04:40 APTT 31.3 Seconds (25.6-37.1) D 09/17/16 04:40 Sodium 138 mmol/l (132-148) 09/18/16 07:19 Potassium 3.7 MMOL/L (3.6-5.0) 09/18/16 07:19 Chloride 105 mmol/L (98-107) 09/18/16 07:19 Carbon Dioxide 23 mmol/L (22-30) 09/18/16 07:19 Anion Gap 13 (10-20) 09/18/16 07:19 BUN 5 mg/dl (7-17) L 09/18/16 07:19 Creatinine 0.6 mg/dL (0.7-1.2) L 09/18/16 07:19 Est GFR ( Amer) > 60 09/18/16 07:19 Est GFR (Non-Af Amer) > 60 09/18/16 07:19 Random Glucose 86 mg/dL (65-105) 09/18/16 07:19 Lactic Acid 0.9 MMOL/L (0.7-2.1) 09/16/16 00:29 Calcium 8.8 mg/dL (8.4-10.2) 09/18/16 07:19 Total Bilirubin 0.9 mg/dl (0.2-1.3) 09/18/16 07:19 AST 170 U/L (14-36) H D 09/18/16 07:19 ALT 447 U/L (9-52) H D 09/18/16 07:19 Alkaline Phosphatase 98 U/L (38-126) 09/18/16 07:19 Troponin I < 0.0120 ng/mL (0.00-0.120) 09/16/16 18:30 Total Protein 6.8 G/DL (6.3-8.2) 09/18/16 07:19 Albumin 3.7 g/dL (3.5-5.0) 09/18/16 07:19 Globulin 3.2 gm/dL (2.2-3.9) 09/18/16 07:19 Albumin/Globulin Ratio 1.2 (1.0-2.1) 09/18/16 07:19 Lipase 95 U/L (23-300) 09/15/16 22:44 Free T4 1.09 ng/dL (0.78-2.19) 09/16/16 18:30 TSH 3rd Generation 1.00 mIU/ML (0.46-4.68) 09/16/16 18:30 Urine Color Yellow (YELLOW) 09/15/16 22:44 Urine Clarity Slighty-cloudy (Clear) 09/15/16 22:44 Urine pH 6.0 (5.0-8.0) 09/15/16 22:44 Ur Specific [place] 1.024 (1.003-1.030) 09/15/16 22:44 Urine Protein 30 mg/dL (NEGATIVE) 09/15/16 22:44 Urine Glucose (UA) Neg mg/dL (Normal) 09/15/16 22:44 Urine Ketones Negative mg/dL (NEGATIVE) 09/15/16 22:44 Urine Blood Negative (NEGATIVE) 09/15/16 22:44 Urine Nitrate Negative (NEGATIVE) 09/15/16 22:44 Urine Bilirubin Negative (NEGATIVE) 09/15/16 22:44 Urine Urobilinogen 0.2-1.0 mg/dL (0.2-1.0) 09/15/16 22:44 Ur Leukocyte Esterase Neg Enrique/uL (Negative) 09/15/16 22:44 Urine RBC (Auto) 2 /hpf (0-3) 09/15/16 22:44 Urine Microscopic WBC < 1 /hpf (0-5) 09/15/16 22:44 Ur Squamous Epith Cells < 1 /hpf (0-5) 09/15/16 22:44 Urine Bacteria Rare (<OCC) 09/15/16 22:44 Hepatitis A IgM Ab Negative (NEGATIVE) 09/16/16 10:30 Hep Bs Antigen Negative (NEGATIVE) 09/16/16 10:30 Hep B Core IgM Ab Negative (NEGATIVE) 09/16/16 10:30 Hepatitis C Antibody Negative (NEGATIVE) 09/16/16 10:30 - Hospital Course Hospital Course: POD#1 31 year old female with morbid obesity admitted and treated for cholecystitis, s /p laparscopic cholecystectomy. Patients LFTs are trending down. She tolerated breakfast this morning. She is stable from surgical standpoint. Patient will follow up with in surgery clinic in 2 weeks. Follow up at [facility] on [address] Mckeon. Discharge medications: Percocet 5/325mg q4hrs PRN pain #20 tabs. Discharge Plan - Follow Up Plan Condition: FAIR Disposition: HOME/ ROUTINE Instructions: Laparoscopic Cholecystectomy (DC) Additional Instructions: Follow up with Dr. Birmingham in 2 weeks. Follow up with Dr. Mckeon at [facility] on September 28. Leave bandaids on for 2 days then remove. Steri strips stay until the fall off. Patient may shower tomorrow but not soak incisions Avoid lifting more than 10 pounds for 4 weeks Return to ED if intractable abdominal pain, nausea/vomiting, fever, incision drainage Referrals: Elbert Birmingham MD [Staff Provider] -
[2016-09-18] MEDS: Oxycodone/Acetaminophen 5/325 mg Tab PO PRN (12:35)
[2016-09-18 18:38] VITALS: O2SAT 100
== END 2016-09-18 14:46 | disposition home or self-care (01) | DRG 494 ==
LOC: H.ER 21:23 → H.ERHOLD 23:54 → H.MEDSURG1 09-16 02:15
PROVIDERS: ADMIT Family Medicine Geriatric Medicine; ATTEND Family Medicine Geriatric Medicine
PROC: 0FT44ZZ Resection of Gallbladder, Percutaneous Endoscopic Approach (ICD-10-PCS; principal; 2016-09-17 13:30)
DX: K80.00 Calculus of gallbladder with acute cholecystitis without obstruction (principal); E66.01 Morbid (severe) obesity due to excess calories; K29.70 Gastritis, unspecified, without bleeding

== ENCOUNTER 2016-11-10 21:20 | Emergency (ER) | payer SELFPAY ==
[2016-11-10 21:28] VITALS: BP 106/70; PULSE 60; RESP 18; TEMP 98.9; O2SAT 98
--- NOTE | 2016-11-10 21:54 | ED PDOC ---
HPI: Female Pain Additional Complaint(s): 31yo F with PMHx s/p bariatric surgery presents with pain in external genital area. external labial tenderness x2 weeks, a/w white/yellow d/c, denies vaginal bleeding. Denies moisture in the external area. a/w itchiness which didnt improve with vagisil. Denies f/c, n/v, dysuria, hematuria, CVAT. PCP: LETICIA <Leann Gill - Last Filed: 11/10/16 22:19> <Jennifer Mendez A - Last Filed: 11/10/16 22:28> Chief Complaint (Nursing): Female Genitourinary Supervising Attending Note - Supervising Attending Note The Documented history was done by the: Physician Data Entry, Attending Physician The documented physical exam was done by the: Physician Data Entry, Attending Physician The documented procedures were done by the: Physician Data Entry, Attending Physician - Attestation: I have personally seen and examined this patient.: Yes I have fully participated in the care of the patient.: Yes I have reviewed all pertinent clinical information, including history, physical exam and plan: Yes <Jennifer Mendez A - Last Filed: 11/10/16 22:28> Past Medical History Reviewed: Historical Data, Nursing Documentation, Vital Signs Vital Signs: Last Vital Signs Temp 98.9 F 11/10/16 21:24 Pulse 60 11/10/16 21:24 Resp 18 11/10/16 21:24 BP 106/70 11/10/16 21:24 Pulse Ox 98 11/10/16 21:24 - Medical History PMH: Gastritis Denies: Chronic Kidney Disease - Surgical History Surgical History: Cholecystectomy, (x2) Other surgeries: bariatric - Family History Family History: States: Unknown Family Hx - Social History Current smoker - smoking cessation education provided: No Alcohol: None Drugs: Denies <Tu,Ting - Last Filed: 11/10/16 22:19> Vital Signs: Last Vital Signs Temp 98.9 F 11/10/16 21:24 Pulse 60 11/10/16 21:24 Resp 18 11/10/16 21:24 BP 106/70 11/10/16 21:24 Pulse Ox 98 11/10/16 22:23 <Jennifer Mendez A - Last Filed: 11/10/16 22:28> - Home Medications Home Medications: Ambulatory Orders Medication Instructions Recorded Omeprazole Magnesium [Prilosec Otc] 20 mg PO DAILY #20 tablet. 08/10/16 Fluconazole [Diflucan] 150 mg PO ONCE #1 tab 11/10/16 - Allergies Allergies/Adverse Reactions: Allergies Allergy/AdvReac Type Severity Reaction Status Date / Time No Known Allergies Allergy Verified 09/15/16 21:41 Review of Systems Genitourinary Female: Positive for: Vaginal Discharge, Other (labial itchiness, tenderness) <g - Last Filed: 11/10/16 22:19> Physical Exam - Reviewed Nursing Documentation Reviewed: Yes Vital Signs Reviewed: Yes - Physical Exam Appears: Positive for: Well, No Acute Distress Head Exam: Positive for: ATRAUMATIC, NORMAL INSPECTION Skin: Positive for: Warm, Dry Eye Exam: Positive for: Normal appearance Neck: Positive for: Normal, Supple Cardiovascular/Chest: Positive for: Regular Rate, Rhythm. Negative for: Murmur Respiratory: Positive for: Normal Breath Sounds. Negative for: Wheezing Gastrointestinal/Abdominal: Positive for: Normal Exam, Soft Pelvic Exam: Positive for: Bimanual Exam Normal, No Cerv. Motion Tender, Other ( external exam with some macerated/moist skin, no erythema/swelling/cysts/ lesions. speculum exam with cervix having some erythema centrally, minimal clear discharge). Negative for: Discharge Back: Positive for: Normal Inspection. Negative for: L CVA Tenderness, R CVA Tenderness Extremity: Positive for: Normal ROM. Negative for: Tenderness Neurologic/Psych: Positive for: Alert, Oriented <g - Last Filed: 11/10/16 22:19> - ECG O2 Sat by Pulse Oximetry: 98 < - Last Filed: 11/10/16 22:19> Medical Decision Making Medical Decision Makin DDx macerated labia majora, yeast infection, Gc/C, PID unlikely urine dip speculum exam, no PID G/C cx genital cx reassessment 2218 urine dip negative for infection d/c with diflucan 150mg PO x1 FU [facility] <Ting - Last Filed: 11/10/16 22:19> Disposition - Disposition Disposition: Routine/Home Disposition Time: 22:21 <Ting - Last Filed: 11/10/16 22:19> <Jennifer Mendez - Last Filed: 11/10/16 22:28> - Clinical Impression Clinical Impression: Yeast infection involving the vagina and surrounding area - Disposition [facility] [place] Condition: STABLE Prescriptions: Fluconazole [Diflucan] 150 mg PO ONCE #1 tab Forms: [employer] (Hebrew)
[2016-11-10] MEDS ORDERED: Fluconazole 150 MG TAB PO ONE (22:26)
== END 2016-11-10 22:45 | disposition home or self-care (01) ==
LOC: H.ER 21:20
DX: B37.3 Candidiasis of vulva and vagina (principal); Z98.84 Bariatric surgery status

== ENCOUNTER 2016-11-19 23:59 | Emergency (ER) | payer SELFPAY ==
[2016-11-20 00:06] VITALS: BP 112/72; PULSE 51; RESP 16; TEMP 98.2; O2SAT 100
[2016-11-20] MEDS ORDERED: Fluconazole 150 MG TAB PO ONE (00:30)
--- NOTE | 2016-11-20 00:32 | ED PDOC ---
HPI: Female Pain Time Seen by Provider: 11/20/16 00:00 Chief Complaint (Nursing): Female Genitourinary Chief Complaint (Provider): vaginal irritation History Per: Patient History/Exam Limitations: no limitations Onset/Duration Of Symptoms: Days (1) Current Symptoms Are (Timing): Still Present Quality Of Discomfort: Burning Additional History Per: Patient Additional Complaint(s): 31 y/o female presents with vaginal irritation x 1 day. Patient admits to similar symptoms 2 weeks ago, was seen in ED and treated for yeast infection with improvement of symptoms. Patient notes symptoms to have returned tonight, describes as itching to external genital area and burning with urination. Little relief with vagisil. Denies fever, nausea/vomiting, abdominal/pelvic pain, vaginal discharge, dysuria, hematuria. Past Medical History Reviewed: Historical Data, Nursing Documentation, Vital Signs Vital Signs: Last Vital Signs Temp 98.2 F 11/20/16 00:04 Pulse 51 L 11/20/16 00:04 Resp 16 11/20/16 00:04 BP 112/72 11/20/16 00:04 Pulse Ox 100 11/20/16 00:04 - Medical History PMH: No Chronic Diseases, Gastritis Denies: Chronic Kidney Disease - Surgical History Surgical History: Cholecystectomy, (x2) - Family History Family History: States: Unknown Family Hx - Home Medications Home Medications: Ambulatory Orders Medication Instructions Recorded Omeprazole Magnesium [Prilosec Otc] 20 mg PO DAILY #20 tablet. 08/10/16 Fluconazole [Diflucan] 150 mg PO ONCE #1 tab 11/10/16 - Allergies Allergies/Adverse Reactions: Allergies Allergy/AdvReac Type Severity Reaction Status Date / Time No Known Allergies Allergy Verified 09/15/16 21:41 Review of Systems ROS Statement: Except As Marked, All Systems Reviewed And Found Negative Genitourinary Female: Positive for: Rash Physical Exam - Reviewed Nursing Documentation Reviewed: Yes Vital Signs Reviewed: Yes - Physical Exam Appears: Positive for: Well, Non-toxic, No Acute Distress Head Exam: Positive for: ATRAUMATIC, NORMAL INSPECTION, NORMOCEPHALIC Skin: Positive for: Normal Color Eye Exam: Positive for: Normal appearance ENT: Positive for: Normal ENT Inspection Cardiovascular/Chest: Positive for: Regular Rate, Rhythm Respiratory: Positive for: Normal Breath Sounds Gastrointestinal/Abdominal: Positive for: Normal Exam Pelvic Exam: Positive for: No Cerv. Motion Tender, Other (mild vulvar erythema. Area Moist. No abscess, discharge noted. Exam chaperoned by [facility] tech). Negative for: Cervicitis Back: Positive for: Normal Inspection Extremity: Positive for: Normal ROM Neurologic/Psych: Positive for: Alert, Oriented - Laboratory Results Urine POC: Negative Urine dip results: Positive for: Blood (patient has menses). Negative for: Leukocyte Esterase, Nitrate - ECG O2 Sat by Pulse Oximetry: 100 Pulse Ox Interpretation: Normal - Progress ED Course And Treament: chart reviewed, patient had negative GC/chlamydia, genital culture showed moderate yeast from 11/10/16 visit. udip, genital culture ordered Patient educated on findings, states she prefers the pill over anti-fungal cream treatment. Advised follow up [place] 2-3 days. Return to ED for worsening/concerning symptoms. Disposition - Clinical Impression Clinical Impression: Yeast infection involving the vagina and surrounding area - Patient ED Disposition Is Patient to be Admitted: No Counseled Patient/Family Regarding: Studies Performed, Diagnosis, Need For Followup - Disposition Disposition: Routine/Home Disposition Time: 00:40 Condition: STABLE Instructions: Vulvovaginal Candidiasis (ED) Print Language: DJIBOUTIAN
== END 2016-11-20 00:45 | disposition home or self-care (01) ==
LOC: H.ER 23:59
DX: B37.3 Candidiasis of vulva and vagina (principal)

== ENCOUNTER 2018-02-26 18:24 | Emergency (ER) | payer OTHER ==
[2018-02-26 18:59] VITALS: BP 115/65; PULSE 57; RESP 16; TEMP 98.5; O2SAT 99
[2018-02-26] MEDS ORDERED: Tdap Vaccine 0.5 ml Vial (10-64 yrs) IM ONE (19:30)
[2018-02-26] MEDS: Tdap Vaccine 0.5 ml Vial (10-64 yrs) IM ONE (19:37)
--- NOTE | 2018-02-26 19:52 | ED PDOC ---
Lower Extremity Pain/Injury Time Seen by Provider: 02/26/18 19:07 Chief Complaint (Nursing): Abnormal Skin Integrity Chief Complaint (Provider): Puncture Wound History Per: Patient, Keyliner (#[id number]) History/Exam Limitations: no limitations Onset/Duration Of Symptoms: Hrs (earlier today) Current Symptoms Are (Timing): Still Present Additional Complaint(s): 33 year old female presents to the ED for evaluation of a puncture wound to the bottom of her left foot. She reports earlier today she stepped on a mikala nail and it went through the rubber soles of her shoes, piercing the affected foot, sustaining a wound. Denies history of diabetes, and foreign body sensation. Tetanus not up to date. PMD: Dae Mckeon Past Medical History Reviewed: Historical Data, Nursing Documentation, Vital Signs Vital Signs: Last Vital Signs Temp 98.5 F 02/26/18 18:54 Pulse 57 L 02/26/18 18:54 Resp 16 02/26/18 18:54 BP 115/65 02/26/18 18:54 Pulse Ox 99 02/26/18 18:54 - Medical History PMH: Gastritis Denies: Chronic Kidney Disease - Surgical History Surgical History: Cholecystectomy, (x2) - Family History Family History: States: Unknown Family Hx - Social History Current smoker - smoking cessation education provided: No Alcohol: None Drugs: Denies - Home Medications Home Medications: Ambulatory Orders Medication Instructions Recorded Omeprazole Magnesium [Prilosec Otc] 20 mg PO DAILY #20 tablet. 08/10/16 Fluconazole [Diflucan] 150 mg PO ONCE #1 tab 11/10/16 RX: Ciprofloxacin [Cipro] 500 mg PO ONCE #13 tab 02/26/18 - Allergies Allergies/Adverse Reactions: Allergies Allergy/AdvReac Type Severity Reaction Status Date / Time No Known Allergies Allergy Verified 02/26/18 18:54 Review of Systems ROS Statement: Except As Marked, All Systems Reviewed And Found Negative Skin: Positive for: Other (puncture wound to bottom of left foot, no bleeding) Physical Exam - Reviewed Nursing Documentation Reviewed: Yes Vital Signs Reviewed: Yes - Physical Exam Appears: Positive for: No Acute Distress Pulses-Dorsalis Pedis (L): 2+ Pulses-Dorsalis Pedis (R): 2+ Extremity: Positive for: Capillary Refill (less than 2 seconds), Other (left foot plantar surface: superficial puncture wound, no active bleeding) - ECG O2 Sat by Pulse Oximetry: 99 (RA) Pulse Ox Interpretation: Normal Medical Decision Making Medical Decision Making: Time: 1922 Initial Impression: puncture wound Initial Plan: --U-preg --Tetanus booster --Cipro 500mg PO --Tylenol 975mg PO --Left foot XR --Wound irrigated copiously and dressed. 2004 Left XR: no foreign body noted, as read by KASHIF. Scribe Attestation: Documented by Chyna Denise, acting as a scribe for Fernando Calix PA-C Provider Scribe Attestation: All medical record entries made by the Scribe were at my direction and personally dictated by me. I have reviewed the chart and agree that the record accurately reflects my personal performance of the history, physical exam, medical decision making, and the department course for this patient. I have also personally directed, reviewed, and agree with the discharge instructions and disposition. Disposition - Clinical Impression Clinical Impression: Puncture wound - Patient ED Disposition Is Patient to be Admitted: No - Disposition Referrals: Podiatry Clinic [Outside] Hudson Patterson DPM [Medical Doctor] - Disposition: Routine/Home Disposition Time: 19:51 Condition: STABLE Additional Instructions: FOLLOW UP WITH THE PODIATRY CLINIC OR DR. MCKEON IN 2 DAYS FOR WOUND CHECK RETURN TO ED IMMEDIATELY IF SYMPTOMS WORSEN AMAN CARBAJAL, thank you for letting us take care of you today. Your provider was Chano Caballero III, DO and you were treated for STEPPED ON NAIL LEFT FOOT. The emergency medical care you received today was directed at your acute symptoms. If you were prescribed any medication, please fill it and take as directed. It may take several days for your symptoms to resolve. Return to the Emergency Department if your symptoms worsen, do not improve, or if you have any other problems. Please contact your doctor or call one of the physicians/clinics you have been referred to that are listed on the Patient Visit Information form that is included in your discharge packet. Bring any paperwork you were given at discharge with you along with any medications you are taking to your follow up visit. Our treatment cannot replace ongoing medical care by a primary care provider outside of the emergency department. Thank you for allowing the [facility] team to be part of your care today. If you had an X-Ray or CT scan: A Radiologist will review the ED reading if any change in treatment is needed we will contact you. If you had a blood, urine, or wound culture: It will take several days for the results, if any change in treatment is needed we will contact you. If you had an STI test: It will take 48 hours for the results. Please call after 1 week if you have not heard back. Prescriptions: RX: Ciprofloxacin [Cipro] 500 mg PO ONCE #13 tab Instructions: Wound Care (DC) Forms: [employer] (Kinyarwanda) Print Language: SYRIAN
--- NOTE | 2018-02-27 10:23 | RAD ---
Date of service: 02/26/2018 PROCEDURE: Left Foot Radiographs. HISTORY: puncture wound to L foot COMPARISON: None. FINDINGS: BONES: Normal. No fracture. JOINTS: Normal. SOFT TISSUES: Normal. OTHER FINDINGS: None. IMPRESSION: Normal left foot radiographs.
== END 2018-02-26 20:13 | disposition home or self-care (01) ==
LOC: H.ER 18:24
DX: S91.332A Puncture wound without foreign body, left foot, initial encounter (principal); W45.0XXA Nail entering through skin, initial encounter; Y92.89 Other specified places as the place of occurrence of the external cause